=== PATIENT | male | born 1980 | race Caucasian/White ===

== ENCOUNTER 2024-04-29 09:29 | Emergency (ER) | payer OTHER | END 2024-04-29 10:18 | disposition home or self-care (01) | LOC: JP.ED 09:29 | DX: S00.03XA Contusion of scalp, initial encounter (principal); S00.411A Abrasion of right ear, initial encounter; Z90.49 Acquired absence of other specified parts of digestive tract; V89.0XXA Person injured in unspecified motor-vehicle accident, nontraffic, initial encounter | CPT/HCPCS: 99284 ==